=== PATIENT | male | born 1970 | race Caucasian/White ===

== ENCOUNTER 2018-10-29 17:25 | Emergency (ER) | payer OTHER ==
[~2018-10-29] VITALS: Ht 188 cm; Wt 101.2 kg
[2018-10-29] MEDS ORDERED: FAMOTIDINE 20 MG/2 ML VIAL IVP ONE (18:30)
[2018-10-29] MEDS ORDERED: IV NORMAL SALINE 1000ML BAG 1,000 ML IV ONE (18:30)
[2018-10-29] MEDS ORDERED: ONDANSETRON PF 4 MG/2 ML VIAL. IV ONE (18:30)
[2018-10-29] MEDS ORDERED: MORPHINE SULFATE 10 MG/ML VIAL. IV ONE (18:30)
[2018-10-29 18:43] LABS: BASO % 1 % (0-3); EOS # 0.4 x10^3/uL (0.0-0.7); EOS % 5 % (0-3); HEMATOCRIT 43.9 % (39.0-53.0); HEMOGLOBIN 15.6 g/dL (13.0-17.5); LYMPH # 2.3 x10^3/uL (1.0-4.8); LYMPH % 29 % (24-48); MEAN CORPUSCULAR HEMOGLOBIN 32 pg (25-35); MEAN CORPUSCULAR HGB CONC 36 g/dL (31-37); MEAN CORPUSCULAR VOLUME 89 fL (79-100); MONO # 0.7 x10^3/uL (0.0-1.1); MONO % 9 % (0-9); NEUT # 4.6 x10^3uL (1.8-7.7); NEUT % 57 % (31-73); PLATELET COUNT 245 x10^3/uL (140-400); RED BLOOD COUNT 4.94 x10^6/uL (4.30-5.70); RED CELL DISTRIBUTION WIDTH 12.8 % (11.5-14.5)
[2018-10-29 18:47] LABS: BILIRUBIN,URINE NEGATIVE (NEG); CLARITY,URINE CLEAR; COLOR,URINE YELLOW; NITRITE,URINE NEGATIVE (NEG); PROTEIN,URINE NEGATIVE (NEG-TRACE)
[2018-10-29 18:53] LABS: BACTERIA,URINE 0 /HPF (0-FEW); RBC,URINE 0 /HPF (0-2); WBC,URINE 0 /HPF (0-4)
[2018-10-29 18:54] LABS: CALCIUM 9.3 mg/dL (8.5-10.1); CREATININE 0.8 mg/dL (0.7-1.3); GFR 104.1; POTASSIUM 3.5 mmol/L (3.5-5.1)
[2018-10-29 18:54] LABS: BARBITURATES NEG (NEG); BENZODIAZEPINES NEG (NEG); CANNABINOIDS NEG (NEG); COCAINE NEG (NEG); METHADONE NEG (NEG); OPIATES NEG (NEG); PHENCYCLIDINE NEG (NEG)
[2018-10-29 18:59] LABS: AMPHETAMINE/METHAMPHETAMINE NEG (NEG)
[2018-10-29] MEDS ORDERED: IOHEXOL 300 MG/ML 100ML VIAL. IV ONE (19:00)
[2018-10-29 19:01] LABS: ALBUMIN/GLOBULIN RATIO 1.1 (1.0-1.7); MAGNESIUM 2.2 mg/dL (1.8-2.4); TOTAL BILIRUBIN 0.2 mg/dL (0.2-1.0); TOTAL PROTEIN 7.6 g/dL (6.4-8.2)
[2018-10-29] MEDS ORDERED: CONTRAST GIVEN. MC PRN ×2 (19:15)
--- NOTE | 2018-10-29 20:25 | RAD ---
Examination: CT ABD PELV W/ IV CONTRST ONLY History: abd pain x 2 days; Omni 300, 75ml Comparison/Correlation: None Findings: Axial images of the abdomen and pelvis were obtained following IV contrast. Sagittal and coronal reformatted images were provided. Moderate amount of debris within the stomach is noted. Approximately 1 cm diameter left hepatic lobe segment 2 cyst is present. Smaller lesion which probably also represents a cyst or biliary hamartoma is present involving the right hepatic lobe near the hepatic hilum. Pancreas, adrenal glands, and kidneys are unremarkable. No extraluminal gas. No enlarged abdominal or pelvic lymph nodes. No ascites or pelvic free fluid. Gallbladder fossa is unremarkable. Appendix is normal. Urinary bladder is unremarkable. Bony structures are overall unremarkable. Slightly depressed L1 superior endplate is noted but this is likely chronic or developmental. Impression: No acute inflammatory process or obstruction. Electronically signed by: Jreemie Jim MD (10/29/2018 8:20 PM) [facility]
[2018-10-29 21:17] VITALS: BP 96/64
--- NOTE | 2018-10-29 21:40 | PHYS DOC ---
Past Medical History Past Medical History: No Pertinent History Alcohol Use: Occasionally Drug Use: None Adult General Chief Complaint Chief Complaint: ABDOMINAL PAIN HPI HPI Patient is a 48 year old male with no significant medical history who presents today complaining of 8 out of 10 bilateral upper abdominal pain that began yesterday and now has spread throughout the entire abdomen. Patient describes the pain as sharp and intermittent. Patient denies anything exacerbating or making the pain better. He states he has been seen at the different facility before for similar pain, had a full workup which was negative. Patient denies any nausea vomiting, denies any diarrhea. Review of Systems Review of Systems Constitutional: Denies fever or chills [] Eyes: Denies change in visual acuity, redness, or eye pain [] HENT: Denies nasal congestion or sore throat [] Respiratory: Denies cough or shortness of breath [] Cardiovascular: No additional information not addressed in HPI [] GI: Reports generalized abdominal pain, denies nausea, vomiting, bloody stools or diarrhea [] : Denies dysuria or hematuria [] Musculoskeletal: Denies back pain or joint pain [] Integument: Denies rash or skin lesions [] Neurologic: Denies headache, focal weakness or sensory changes [] All other systems were reviewed and found to be within normal limits, except as documented in this note. Current Medications Current Medications Current Medications Medications (Trade) Dose Ordered Sig/Redd Start Time Stop Time Status Last Admin Dose Admin Famotidine (Pepcid Vial) 20 mg 1X ONCE 10/29/18 18:30 10/29/18 18:39 DC 10/29/18 18:54 20 MG Info (CONTRAST GIVEN -- Rx MONITORING) 1 each PRN DAILY PRN 10/29/18 19:15 10/31/18 19:14 Iohexol (Omnipaque 300 Mg/ml) 75 ml 1X ONCE 10/29/18 19:00 10/29/18 19:02 DC 10/29/18 19:17 75 ML Morphine Sulfate (Morphine Sulfate) 5 mg 1X ONCE 10/29/18 18:30 10/29/18 18:39 DC 10/29/18 18:58 5 MG Ondansetron HCl (Zofran) 4 mg 1X ONCE 10/29/18 18:30 10/29/18 18:39 DC 10/29/18 18:53 4 MG Sodium Chloride 1,000 ml @ 1,000 mls/hr 1X ONCE 10/29/18 18:30 10/29/18 19:29 DC 10/29/18 18:52 1,000 MLS/HR Allergies Allergies Allergies Coded Allergies Type Severity Reaction Last Updated Verified No Known Drug Allergies 10/29/18 No Physical Exam Physical Exam Constitutional: Well developed, well nourished, no acute distress, non-toxic appearance. [] HENT: Normocephalic, atraumatic, bilateral external ears normal, oropharynx moist, no oral exudates, nose normal. [] Eyes: PERRLA, EOMI, conjunctiva normal, no discharge. [] Neck: Normal range of motion, no tenderness, supple, no stridor. [] Cardiovascular:Heart rate regular rhythm, no murmur [] Lungs & Thorax: Bilateral breath sounds clear to auscultation [] Abdomen: Bowel sounds normal, soft, no tenderness, no masses, no pulsatile masses. [] Skin: Warm, dry, no erythema, no rash. [] Back: No tenderness, no CVA tenderness. [] Extremities: No tenderness, no cyanosis, no clubbing, ROM intact, no edema. [] Neurologic: Alert and oriented X 3, normal motor function, normal sensory function, no focal deficits noted. [] Psychologic: Affect normal, judgement normal, mood normal. [] Current Patient Data Vital Signs Vital Signs Date Time Temp Pulse Resp B/P (MAP) Pulse Ox O2 Delivery O2 Flow Rate FiO2 10/29/18 18:58 16 98 Room Air 10/29/18 18:21 97.9 69 117/74 (88) 97.9 Lab Values Laboratory Tests Test 10/29/18 18:15 10/29/18 18:20 Urine Collection Type Unknown Urine Color Yellow Urine Clarity Clear Urine pH 6.0 Urine Specific [place] >=1.030 Urine Protein Negative mg/dL (NEG-TRACE) Urine Glucose (UA) Negative mg/dL (NEG) Urine Ketones (Stick) Negative mg/dL (NEG) Urine Blood Negative (NEG) Urine Nitrite Negative (NEG) Urine Bilirubin Negative (NEG) Urine Urobilinogen Dipstick 1.0 mg/dL (0.2 mg/dL) Urine Leukocyte Esterase Negative (NEG) Urine RBC 0 /HPF (0-2) Urine WBC 0 /HPF (0-4) Urine Bacteria 0 /HPF (0-FEW) Urine Mucus Mod /LPF Urine Opiates Screen Neg (NEG) Urine Methadone Screen Neg (NEG) Urine Barbiturates Neg (NEG) Urine Phencyclidine Screen Neg (NEG) Urine Amphetamine/Methamphetamine Neg (NEG) Urine Benzodiazepines Screen Neg (NEG) Urine Cocaine Screen Neg (NEG) Urine Cannabinoids Screen Neg (NEG) Urine Ethyl Alcohol Neg (NEG) White Blood Count 8.0 x10^3/uL (4.0-11.0) Red Blood Count 4.94 x10^6/uL (4.30-5.70) Hemoglobin 15.6 g/dL (13.0-17.5) Hematocrit 43.9 % (39.0-53.0) Mean Corpuscular Volume 89 fL (79-100) Mean Corpuscular Hemoglobin 32 pg (25-35) Mean Corpuscular Hemoglobin Concent 36 g/dL (31-37) Red Cell Distribution Width 12.8 % (11.5-14.5) Platelet Count 245 x10^3/uL (140-400) Neutrophils (%) (Auto) 57 % (31-73) Lymphocytes (%) (Auto) 29 % (24-48) Monocytes (%) (Auto) 9 % (0-9) Eosinophils (%) (Auto) 5 % (0-3) H Basophils (%) (Auto) 1 % (0-3) Neutrophils # (Auto) 4.6 x10^3uL (1.8-7.7) Lymphocytes # (Auto) 2.3 x10^3/uL (1.0-4.8) Monocytes # (Auto) 0.7 x10^3/uL (0.0-1.1) Eosinophils # (Auto) 0.4 x10^3/uL (0.0-0.7) Basophils # (Auto) 0.0 x10^3/uL (0.0-0.2) Sodium Level 139 mmol/L (136-145) Potassium Level 3.5 mmol/L (3.5-5.1) Chloride Level 103 mmol/L (98-107) Carbon Dioxide Level 29 mmol/L (21-32) Anion Gap 7 (6-14) Blood Urea Nitrogen 14 mg/dL (8-26) Creatinine 0.8 mg/dL (0.7-1.3) Estimated GFR (Cockcroft-Gault) 104.1 BUN/Creatinine Ratio 18 (6-20) Glucose Level 118 mg/dL (70-99) H Calcium Level 9.3 mg/dL (8.5-10.1) Magnesium Level 2.2 mg/dL (1.8-2.4) Total Bilirubin 0.2 mg/dL (0.2-1.0) Aspartate Amino Transferase (AST) 20 U/L (15-37) Alanine Aminotransferase (ALT) 34 U/L (16-63) Alkaline Phosphatase 52 U/L (46-116) Troponin I Quantitative < 0.017 ng/mL (0.000-0.055) IO-Zzi-V-Type Natriuretic Peptide 22 pg/mL (0-124) Total Protein 7.6 g/dL (6.4-8.2) Albumin 4.0 g/dL (3.4-5.0) Albumin/Globulin Ratio 1.1 (1.0-1.7) Lipase 225 U/L (73-393) Ethyl Alcohol Level < 10 mg/dL (0-10) Laboratory Tests 10/29/18 18:20 Laboratory Tests 10/29/18 18:20 EKG EKG Interpreted by Dr. Vyas, sinus rhythm heart rate 63 no STEMI[] Radiology/Procedures Radiology/Procedures []PROCEDURE: CT ABD PELV W/ IV CONTRST ONLY Examination: CT ABD PELV W/ IV CONTRST ONLY History: abd pain x 2 days; Omni 300, 75ml Comparison/Correlation: None Findings: Axial images of the abdomen and pelvis were obtained following IV contrast. Sagittal and coronal reformatted images were provided. Moderate amount of debris within the stomach is noted. Approximately 1 cm diameter left hepatic lobe segment 2 cyst is present. Smaller lesion which probably also represents a cyst or biliary hamartoma is present involving the right hepatic lobe near the hepatic hilum. Pancreas, adrenal glands, and kidneys are unremarkable. No extraluminal gas. No enlarged abdominal or pelvic lymph nodes. No ascites or pelvic free fluid. Gallbladder fossa is unremarkable. Appendix is normal. Urinary bladder is unremarkable. Bony structures are overall unremarkable. Slightly depressed L1 superior endplate is noted but this is likely chronic or developmental. Impression: No acute inflammatory process or obstruction. Electronically signed by: Jeremie Beaver MD (10/29/2018 8:20 PM) [facility] DICTATED and SIGNED BY: JEREMIE BEAVER MD DATE: 10/29/182012 Course & Med Decision Making Course & Med Decision Making Pertinent Labs and Imaging studies reviewed. (See chart for details) This is a 48-year-old male patient presented to the ED today with complaints of generalized abdominal pain for 2 days. CBC, CMP, lipase, UA, are negative for any acute findings, CT of the abdomen and pelvic with IV contrast is negative for any acute findings. Patient was provided GI doctor for follow-up as an outpatient. Instructed to take kehr-jyy-feegzlb medications as needed. Dragon Disclaimer Dragon Disclaimer This electronic medical record was generated, in whole or in part, using a voice recognition dictation system. Departure Departure Impression: Primary Impression: Abdominal pain Disposition: HOME, SELF-CARE Condition: STABLE Referrals: NON,STAFF (PCP) BÁRBARA SMITH MD Follow up in one week Patient Instructions: Abdominal Pain (Nonspecific) Additional Instructions: You were evaluated in the emergency room for abdominal pain. Your work up was negative for any acute findings including CT of the abdomen with IV contrast as well as lab work. Please follow-up with the provided GI doctor in the next 7 days if symptoms continue. Take ppyw-jik-lnlnark medications as needed for pain. Problem Qualifiers Primary Impression: Abdominal pain Abdominal location: generalized Qualified Codes: R10.84 - Generalized abdominal pain KELLY STANLEY APRN Oct 29, 2018 21:40
[2018-10-30] MEDS ORDERED: IOHEXOL 300 MG/ML 100ML VIAL. ONE (02:17)
--- NOTE | 2018-10-30 06:38 | EKG ---
[facility] [address] [place] [address] Test Date: 2018-10-29 Test Time: 18:45:17 Pat Name: CHAPITO ALY Department: Room: Gender: M Marking Clerk: : 1970 Requested By: KELLY STANLEY Order Number: [id number] Reading MD: Measurements Intervals [place] Rate: 63 P: OR: QRS: 108 QRSD: 106 T: 118 QT: 410 QTc: 423 Interpretive Statements IRREGULAR RHYTHM, NO P-WAVE FOUND RIGHTWARD AXIS QRS(T) CONTOUR ABNORMALITY CONSISTENT WITH HIGH LATERAL INFARCT AGE UNDETERMINED ABNORMAL ECG RI6.01 No previous ECG available for comparison
== END 2018-10-29 21:58 | disposition home or self-care (01) ==
LOC: ER 17:25
DX: R10.11 Right upper quadrant pain (principal); R10.12 Left upper quadrant pain; R10.84 Generalized abdominal pain
CPT/HCPCS: 36415; 74177; 80053; 80307; 81001; 83690; 83735; 83880; 84484; 85025; 93005; 96374; 96375; 99284; G0480; J2270; J2405; J3490; J7030; Q9967; 99285-25

== ENCOUNTER 2020-03-03 14:37 | Emergency (ER) | payer OTHER ==
[~2020-03-03] VITALS: Ht 188 cm; Wt 100.0 kg
[2020-03-03 15:38] VITALS: BP 133/86
--- NOTE | 2020-03-03 16:09 | RAD ---
Examination: HAND LEFT 3V History: Reason: knicked hand with a hand drill / Spl. Instructions: / History: Comparison/Correlation: None Findings: 3 images of the left hand were obtained. Evaluation May BE limited C4 digit proximal phalanx with a ring noted at this level. On the lateral view, there is longitudinal calcific density parallel to the posterior aspect of the second metacarpal bone proximally. Associated soft tissue irregularity at the dorsal aspect of the mid to distal metacarpal bone suggests a lateral view. Joint spaces are mostly unremarkable. Mild early radiocarpal joint remodeling is noted. Impression: Linear density along the posterior aspect of the second metacarpal bone proximally is present. This raises question of nondisplaced cortical fracture defect. Correlated with history of injury. No radiopaque foreign body Electronically signed by: Jeremie Jim MD (03/03/2020 4:06 PM) [id number]
[2020-03-03] MEDS ORDERED: PIPERACILLIN/TAZOBACTAM 3.375 GM in IV NORMAL SALINE 50ML 50 ML IV ONE (16:30)
[2020-03-03] MEDS ORDERED: DIPH,PERTUSS(ACELL),TET VAC/PF 0.5 ML SYRINGE. VAX IM ONE (16:30)
[2020-03-03] MEDS ORDERED: NEOMY/BACITR/POLYMYXIN OINT PACKET. TP ONE (16:30)
[2020-03-03] MEDS ORDERED: CEPH500T PO (17:13)
[2020-03-03] MEDS ORDERED: HYDR-3164 PO (17:14)
--- NOTE | 2020-03-03 17:14 | PHYS DOC ---
Past Medical History Past Medical History: No Pertinent History Past Surgical History: No Surgical History Smoking Status: Former Smoker Alcohol Use: Occasionally Drug Use: None General Adult EDM: Chief Complaint: HAND PROBLEM HPI: HPI: Patient is a 49 year old male who presents to the ED today with puncture wound to the left hand. Patient is left-handed, he states he was working with a drill bit that accidentally nicked his left hand. This happened yesterday. Review of Systems: Review of Systems: Constitutional: Denies fever or chills. [] Musculoskeletal: Reports left hand injury Integument: Denies rash. [] Neurologic: Denies headache, focal weakness or sensory changes. [] Psychiatric: Denies depression or anxiety. [] Heart Score: Risk Factors: Risk Factors: DM, Current or recent (<one month) smoker, HTN, HLP, family history of CAD, obesity. Risk Scores: Score 0 - 3: 2.5% MACE over next 6 weeks - Discharge Home Score 4 - 6: 20.3% MACE over next 6 weeks - Admit for Clinical Observation Score 7 - 10: 72.7% MACE over next 6 weeks - Early Invasive Strategies Current Medications: Current Medications Medications (Trade) Dose Ordered Sig/Redd Start Time Stop Time Status Last Admin Dose Admin Diphtheria/ Tetanus/Acell Pertussis (ADACEL TDap SYRINGE) 0.5 ml ONCE ONCE 03/03/20 16:30 03/03/20 16:31 DC 03/03/20 16:43 0.5 ML Neomycin/ Polymyxin/ Bacitracin (Triple Antibiotic Ointment) 1 pkt 1X ONCE 03/03/20 16:30 03/03/20 16:31 DC 03/03/20 16:30 1 PKT Piperacillin Sod/ Tazobactam Sod 3.375 gm/Sodium Chloride 50 ml @ 100 mls/hr 1X ONCE 03/03/20 16:30 03/03/20 17:00 DC 03/03/20 16:43 100 MLS/HR Allergies: Allergies: Allergies Coded Allergies Type Severity Reaction Last Updated Verified No Known Drug Allergies 10/29/18 No Physical Exam: PE: Constitutional: Well developed, well nourished, no acute distress, non-toxic appearance. [] Skin: Warm, dry, no erythema, no rash. [] Back: No tenderness, no CVA tenderness. [] Extremities: Left hand with no obvious deformity, puncture wound approximately 0.5 x 0.5 cm noted on the left hand ventral aspect between index finger and ring finger knuckle. No obvious bleeding. Full range of motion to the left hand and fingers. Adequate radial, medial, ulnar sensation to the left fingers. +2 left radial pulse. Cap refill less than 2 seconds to left fingers. Neurologic: Alert and oriented X 3, normal motor function, normal sensory function, no focal deficits noted. [] Psychologic: Affect normal, judgement normal, mood normal. [] Current Patient Data: Vital Signs: Vital Signs Date Time Temp Pulse Resp B/P (MAP) Pulse Ox O2 Delivery O2 Flow Rate FiO2 03/03/20 15:38 97.9 63 16 133/86 (102) 98 Room Air 97.9 EKG: EKG: [] Radiology/Procedures: Radiology/Procedures: []PROCEDURE: HAND LEFT 3V Examination: HAND LEFT 3V History: Reason: knicked hand with a hand drill / Spl. Instructions: / History: Comparison/Correlation: None Findings: 3 images of the left hand were obtained. Evaluation May BE limited C4 digit proximal phalanx with a ring noted at this level. On the lateral view, there is longitudinal calcific density parallel to the posterior aspect of the second metacarpal bone proximally. Associated soft tissue irregularity at the dorsal aspect of the mid to distal metacarpal bone suggests a lateral view. Joint spaces are mostly unremarkable. Mild early radiocarpal joint remodeling is noted. Impression: Linear density along the posterior aspect of the second metacarpal bone proximally is present. This raises question of nondisplaced cortical fracture defect. Correlated with history of injury. No radiopaque foreign body Electronically signed by: Jeremie Beaver MD (03/03/2020 4:06 PM) [id number] DICTATED and SIGNED BY: JEREMIE BEAVER MD DATE: 03/03/20 1606 Course & Med Decision Making: Course & Med Decision Making Pertinent Labs and Imaging studies reviewed. (See chart for details) This is a 49-year-old male patient presenting to the ED today with left hand injury, patient accidentally nicked his left hand with a drill bit yesterday. Left hand x-rays interpreted by radiologist were noted for possible second metacarpal bone proximally undisplaced fracture. Left hand injury site was cleaned thoroughly, Neosporin applied, patient was placed in a sugar tong splint by the care technician, neurovascular exam done by me is normal. He was given Zosyn IV in the ED, discharged on cephalexin, provided orthopedic doctor for follow-up. Breanna Disclaimer: Breanna Disclaimer: This electronic medical record was generated, in whole or in part, using a voice recognition dictation system. Departure Departure Impression: Primary Impression: Fracture of metacarpal base of left hand, open Qualified Codes: S62.341B - Nondisplaced fracture of base of second metacarpal bone, left hand, initial encounter for open fracture Disposition: HOME, SELF-CARE Condition: STABLE Referrals: NOBLE WOODRUFF APRN (PCP) CHAPITO LOREDO MD call his office tomorrow and set up a follow up appointment Patient Instructions: Hand Fracture, Metacarpals Additional Instructions: You have a possible nondisplaced fracture of the left second hand knuckle. Please contact the provided orthopedic doctor and set up a follow-up appointment. Try to ice and elevate the extremity. Complete your antibiotics Scripts Hydrocodone/Apap 5-325 (NORCO 5-325 TABLET) 1 Each Tablet 1 TAB PO Q6HRS, #12 TAB Prov: KELLY STANLEY APRN 03/03/20 Cephalexin (CEPHALEXIN) 500 Mg Tablet 1 TAB PO TID, #30 TAB Prov: KELLY STANLEY APRN 03/03/20 KELLY STANLEY APRN March 03, 2020 17:14
== END 2020-03-03 17:39 | disposition home or self-care (01) ==
LOC: ER 14:37
DX: S62.34 Nondisplaced fracture of base of other metacarpal bone (principal); Z87.891 Personal history of nicotine dependence; W29.8XXA Contact with other powered hand tools and household machinery, initial encounter; Y93.89 Activity, other specified; Y92.79 Other farm location as the place of occurrence of the external cause; Y99.0 Civilian activity done for income or pay
CPT/HCPCS: 29125; 73130; 90471; 90715; 96365; 99284; J2543

== ENCOUNTER 2021-02-12 09:31 | Emergency (ER) | payer OTHER ==
[~2021-02-12] VITALS: Ht 185.4 cm; Wt 106.8 kg
[~2021-02-12 09:31] MED LIST: CEPH500T PO; HYDR-3164 PO
[2021-02-12] MEDS ORDERED: LIDOCAINE 1%/EPI 1:100,000 20 ML VIAL. INJ ONE (10:30)
--- NOTE | 2021-02-12 10:45 | PHYS DOC ---
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 Patient is left-handed (KELLY STANLEY FAMILY EDUCATOR) Review of Systems: Review of Systems: Constitutional: Denies fever or chills. [] Musculoskeletal: Denies back pain or joint pain. [] Integument: Right forearm laceration Neurologic: Denies headache, focal weakness or sensory changes. [] Psychiatric: Denies depression or anxiety. [] (KELLY STANLEY TAM) Heart Score: C/O Chest Pain: N/A Risk Factors: Risk Factors: DM, Current or recent (<one month) smoker, HTN, HLP, family history of CAD, obesity. Risk Scores: Score 0 - 3: 2.5% MACE over next 6 weeks - Discharge Home Score 4 - 6: 20.3% MACE over next 6 weeks - Admit for Clinical Observation Score 7 - 10: 72.7% MACE over next 6 weeks - Early Invasive Strategies (KELLY STANLEY FAMILY EDUCATOR) Current Medications: Current Medications Medications (Trade) Dose Ordered Sig/Redd Start Time Stop Time Status Last Admin Dose Admin Lidocaine/ Epinephrine (LIDOCAINE 1%-EPI 1:100,000 Multi-Dose) 20 ml 1X ONCE 02/12/21 10:30 02/12/21 10:31 DC 02/12/21 10:26 20 ML (KELLY STANLEY FAMILY EDUCATOR) Allergies: Allergies: Allergies Coded Allergies Type Severity Reaction Last Updated Verified No Known Drug Allergies 10/29/18 No (KELLY STANLEY TAM) Physical Exam: PE: Constitutional: Well developed, well nourished, no acute distress, non-toxic appearance. [] Skin: Right proximal forearm ventral aspect with a laceration approximately 8 cm x 2.5 cm. There is no obvious tendon involvement. Patient able to flex and extend the right elbow. Full range of motion to the right fingers. Adequate radial, medial, ulnar sensation to the right fingers. +2 right radial pulse. Cap refill less than 2 seconds of right fingers Back: No tenderness, no CVA tenderness. [] Extremities: No tenderness, no cyanosis, no clubbing, ROM intact, no edema. [] Neurologic: Alert and oriented X 3, normal motor function, normal sensory function, no focal deficits noted. [] Psychologic: Affect normal, judgement normal, mood normal. [] (KELLY STANLEY APRN) Current Patient Data: Vital Signs: Vital Signs Date Time Temp Pulse Resp B/P (MAP) Pulse Ox O2 Delivery O2 Flow Rate FiO2 02/12/21 09:45 98.6 72 16 114/79 (91) 95 Room Air 98.6 (KELLY STANLEY APRN) EKG: EKG: [] (KELLY STANLEY APRN) Radiology/Procedures: Radiology/Procedures: Laceration/Wound Repair Wound Location: Right forearm Wound's Depth, Shape: Horizontal Wound Length (cm): 8 x 2.5 Wound Explored: clean Irrigated w/ Saline (ccs): 500 Betadine Prep?: Y Anesthesia: 1% of lidocaine with epinephrine Volume Anesthetic (ccs): 10 cc Wound Repaired With: Ethilon Suture Size/Type: 3.0 and 4.0 Number of Sutures: 13 Progress : Wound was covered with nonstick dressing (KELLY STANLEY APRN) Course & Med Decision Making: Course & Med Decision Making Pertinent Labs and Imaging studies reviewed. (See chart for details) This is a 50-year-old male patient with a right forearm laceration. Tetanus is up-to-date. Laceration was repaired by me as noted in procedures. Wound care instructions and return precautions provided (KELLY STANLEY APRN) Dragon Disclaimer: Dragon Disclaimer: This electronic medical record was generated, in whole or in part, using a voice recognition dictation system. (KELLY STANLEY APRN) Departure Departure Impression: Primary Impression: Laceration of right forearm Qualified Codes: S51.811A - Laceration without foreign body of right forearm, initial encounter Disposition: HOME / SELF CARE / HOMELESS Condition: STABLE Referrals: NOBLE WOODRUFF APRN (PCP) Follow-up with your primary care doctor or the emergency room in 7 to 10 days for stitches to be removed Patient Instructions: Laceration Care, Adult Additional Instructions: You have right forearm laceration that was closed with stitches. You can shower and wash the area after 24 hours. Remove the dressing in the next 24 hours. Leave it open to air if is not bleeding or draining. Please apply Neosporin to the area twice a day. Monitor the area for any signs of infection including but not limited to increased redness, warmth, yellow drainage from the area and return to the ED if they occur. Follow-up with the ED or your own doctor in 7 to 10 days for stitches to be removed Attending Signature Attending Signature I have participated in the care of this patient and I have reviewed and agree with all pertinent clinical information above including history, exam, and recommendations. (IVY SENIOR DO) KELLY STANLEY APRN February 12, 2021 10:45 IVY SENIOR DO February 12, 2021 17:39
[2021-02-12 12:00] VITALS: BP 108/72
== END 2021-02-12 12:08 | disposition home or self-care (01) ==
LOC: ER 09:31
DX: S51.811A Laceration without foreign body of right forearm, initial encounter (principal); W27.8XXA Contact with other nonpowered hand tool, initial encounter; Y93.89 Activity, other specified; Y92.89 Other specified places as the place of occurrence of the external cause; Y99.8 Other external cause status
CPT/HCPCS: 12004; 99285; J3490

== ENCOUNTER 2021-05-09 14:04 | Emergency (ER) | payer OTHER ==
[~2021-05-09] VITALS: Ht 188 cm; Wt 106.8 kg
--- NOTE | 2021-05-09 15:15 | RAD ---
EXAM: Chest, single view. HISTORY: Short of breath. COMPARISON: None. FINDINGS: A frontal view of the chest is obtained. There is no infiltrate, pleural effusion or pneumo thorax. The heart is normal in size. IMPRESSION: No acute pulmonary finding. Electronically signed by: Isa Garcia MD (05/09/2021 3:13 PM) [id number]
[2021-05-09 15:27] LABS: BASO % 1 % (0-3); EOS # 0.1 x10^3/uL (0.0-0.7); EOS % 2 % (0-3); HEMATOCRIT 43.7 % (39.0-53.0); HEMOGLOBIN 15.2 g/dL (13.0-17.5); LYMPH # 1.3 x10^3/uL (1.0-4.8); LYMPH % 25 % (24-48); MEAN CORPUSCULAR HEMOGLOBIN 31 pg (25-35); MEAN CORPUSCULAR HGB CONC 35 g/dL (31-37); MEAN CORPUSCULAR VOLUME 89 fL (79-100); MONO # 0.4 x10^3/uL (0.0-1.1); MONO % 8 % (0-9); NEUT # 3.4 x10^3/uL (1.8-7.7); NEUT % 64 % (31-73); PLATELET COUNT 286 x10^3/uL (140-400); RED BLOOD COUNT 4.91 x10^6/uL (4.30-5.70); RED CELL DISTRIBUTION WIDTH 13.2 % (11.5-14.5); WHITE BLOOD COUNT 5.3 x10^3/uL (4.0-11.0)
[2021-05-09 15:42] LABS: CALCIUM 9.1 mg/dL (8.5-10.1); CREATININE 0.7 mg/dL (0.7-1.3); GFR 120.4; POTASSIUM 3.9 mmol/L (3.5-5.1)
[2021-05-09 15:47] LABS: ALBUMIN 3.4 g/dL (3.4-5.0); ALBUMIN/GLOBULIN RATIO 0.9 (1.0-1.7); TOTAL BILIRUBIN 0.2 mg/dL (0.2-1.0); TOTAL PROTEIN 7.3 g/dL (6.4-8.2)
[2021-05-09] MEDS ORDERED: IOHEXOL 350 MG/ML 100 ML VIAL. IV ONE (17:00)
[2021-05-09] MEDS ORDERED: CONTRAST GIVEN. MC PRN (17:00)
--- NOTE | 2021-05-09 17:28 | RAD ---
EXAM: CT angiography of the chest with intravenous contrast. HISTORY: Shortness of breath. Elevated d-dimer. TECHNIQUE: Computed tomographic images of the chest were obtained following the administration of int ravenous contrast according to angiography protocol. Multiplanar reformatting was performed and three dimensional maximum intensity projection images were obtained. *One or more of the following individualized dose reduction techniques were utilized for this examina tion: 1. Automated exposure control. 2. Adjustment of the mA and/or kV according to patient size. 3. Use of iterative reconstruction technique. COMPARISON: None. FINDINGS: Evaluation for distal pulmonary emboli is limited due to suboptimal contrast opacification of the distal pulmonary arteries. There is no convincing central pulmonary embolism. The heart is nor mal in size. The aorta is normal in caliber. There are prominent bilateral hilar lymph nodes. There a re few calcified hilar granulomas. There is no pneumothorax or pleural effusion. There is a 4 mm nodu le within the right lung apex. There is a 7 mm nodule along the right minor fissure, likely a fissura l lymph node. There are 3 mm and 2 mm nonspecific groundglass nodules within the right lower lobe. Th ere are 2 mm and 3 mm nodules along the left pleural fissure, likely due to fissural lymph nodes. The re are 4 mm and 3 mm nodule surrounding groundglass within the peripheral left lower lobe. There is a djacent posterior dependent and basilar atelectasis. There are few scattered calcified granulomas. Th ere is a 1.5 cm hypodense lesion within the left hepatic lobe and there are 5 mm and 10 mm hypodense lesions within the right hepatic lobe. These are too small to characterize. There are hepatic and spl enic granulomas. There is no acute or suspicious osseous finding. IMPRESSION: 1. No convincing evidence of pulmonary embolism. Evaluation for distal pulmonary emboli is limited du e to suboptimal contrast opacification. 2. Small bilateral pulmonary nodules and nodular opacities measuring up to 7 mm. Follow-up can be per formed in 6-12 months to confirm benignity. 3. Prominent hilar lymph nodes, nonspecific and possibly reactive in etiology. Attention the time of follow-up is recommended. 4. Small hypodense lesions within the liver. These are too small to characterize. In the absence of k nown malignancy, these are likely cysts or hemangiomas. Electronically signed by: Isa Garcia MD (05/09/2021 5:25 PM) [id number]
[2021-05-09] MEDS ORDERED: VENTOLIN HFA18 GM INH (17:36)
[2021-05-09] MEDS ORDERED: METH4TAB2 PO (17:36)
--- NOTE | 2021-05-09 17:36 | ED.ADGEN ---
Past Medical History Past Medical History: No Pertinent History Past Surgical History: No Surgical History Smoking Status: Never Smoker Alcohol Use: Occasionally Drug Use: None General Adult EDM: Chief Complaint: SHORTNESS OF BREATH HPI: HPI: Patient is a 50 year old [f__sex] who presents with [] Review of Systems: Review of Systems: Constitutional: Denies fever or chills. [] Eyes: Denies change in visual acuity. [] HENT: Denies nasal congestion or sore throat. [] Respiratory: Denies cough or shortness of breath. [] Cardiovascular: Denies chest pain or edema. [] GI: Denies abdominal pain, nausea, vomiting, bloody stools or diarrhea. [] : Denies dysuria. [] Musculoskeletal: Denies back pain or joint pain. [] Integument: Denies rash. [] Neurologic: Denies headache, focal weakness or sensory changes. [] Endocrine: Denies polyuria or polydipsia. [] Lymphatic: Denies swollen glands. [] Psychiatric: Denies depression or anxiety. [] Current Medications: Current Medications Medications (Trade) Dose Ordered Sig/Redd Start Time Stop Time Status Last Admin Dose Admin Info (CONTRAST GIVEN -- Rx MONITORING) 1 each PRN DAILY PRN 05/09/21 17:00 05/11/21 16:59 Iohexol (Omnipaque 350 Mg/ml) 100 ml 1X ONCE 05/09/21 17:00 05/09/21 17:01 DC Allergies: Allergies: Allergies Coded Allergies Type Severity Reaction Last Updated Verified No Known Drug Allergies 10/29/18 No Physical Exam: PE: Constitutional: Well developed, well nourished, no acute distress, non-toxic ap pearance. [] HENT: Normocephalic, atraumatic, bilateral external ears normal, oropharynx moist, no oral exudates, nose normal. [] Eyes: PERRLA, EOMI, conjunctiva normal, no discharge. [] Neck: Normal range of motion, no tenderness, supple, no stridor. [] Cardiovascular:Heart rate regular rhythm, no murmur [] Lungs & Thorax: Bilateral breath sounds clear to auscultation [] Abdomen: Bowel sounds normal, soft, no tenderness, no masses, no pulsatile masses. [] Skin: Warm, dry, no erythema, no rash. [] Back: No tenderness, no CVA tenderness. [] Extremities: No tenderness, no cyanosis, no clubbing, ROM intact, no edema. [] Neurologic: Alert and oriented X 3, normal motor function, normal sensory function, no focal deficits noted. [] Psychologic: Affect normal, judgement normal, mood normal. [] Current Patient Data: Labs: Laboratory Tests Test 05/09/21 15:15 05/09/21 15:50 White Blood Count 5.3 x10^3/uL (4.0-11.0) Red Blood Count 4.91 x10^6/uL (4.30-5.70) Hemoglobin 15.2 g/dL (13.0-17.5) Hematocrit 43.7 % (39.0-53.0) Mean Corpuscular Volume 89 fL (79-100) Mean Corpuscular Hemoglobin 31 pg (25-35) Mean Corpuscular Hemoglobin Concent 35 g/dL (31-37) Red Cell Distribution Width 13.2 % (11.5-14.5) Platelet Count 286 x10^3/uL (140-400) Neutrophils (%) (Auto) 64 % (31-73) Lymphocytes (%) (Auto) 25 % (24-48) Monocytes (%) (Auto) 8 % (0-9) Eosinophils (%) (Auto) 2 % (0-3) Basophils (%) (Auto) 1 % (0-3) Neutrophils # (Auto) 3.4 x10^3/uL (1.8-7.7) Lymphocytes # (Auto) 1.3 x10^3/uL (1.0-4.8) Monocytes # (Auto) 0.4 x10^3/uL (0.0-1.1) Eosinophils # (Auto) 0.1 x10^3/uL (0.0-0.7) Basophils # (Auto) 0.0 x10^3/uL (0.0-0.2) Sodium Level 142 mmol/L (136-145) Potassium Level 3.9 mmol/L (3.5-5.1) Chloride Level 107 mmol/L (98-107) Carbon Dioxide Level 26 mmol/L (21-32) Anion Gap 9 (6-14) Blood Urea Nitrogen 11 mg/dL (8-26) Creatinine 0.7 mg/dL (0.7-1.3) Estimated GFR (Cockcroft-Gault) 120.4 BUN/Creatinine Ratio 16 (6-20) Glucose Level 116 mg/dL (70-99) H Calcium Level 9.1 mg/dL (8.5-10.1) Total Bilirubin 0.2 mg/dL (0.2-1.0) Aspartate Amino Transferase (AST) 31 U/L (15-37) Alanine Aminotransferase (ALT) 36 U/L (16-63) Alkaline Phosphatase 76 U/L (46-116) Troponin I Quantitative < 0.017 ng/mL (0.000-0.055) QD-Hwj-C-Type Natriuretic Peptide 85 pg/mL (0-124) Total Protein 7.3 g/dL (6.4-8.2) Albumin 3.4 g/dL (3.4-5.0) Albumin/Globulin Ratio 0.9 (1.0-1.7) L D-Dimer (Karen) 0.73 ug/mlFEU (0.00-0.50) H Laboratory Tests 05/09/21 15:15 Laboratory Tests 05/09/21 15:15 Vital Signs: Vital Signs Date Time Temp Pulse Resp B/P (MAP) Pulse Ox O2 Delivery O2 Flow Rate FiO2 05/09/21 14:30 98.2 68 20 137/92 (84) 98 Room Air 98.2 EKG: EKG: [] Heart Score: Risk Factors: Risk Factors: DM, Current or recent (<one month) smoker, HTN, HLP, family history of CAD, obesity. Risk Scores: Score 0 - 3: 2.5% MACE over next 6 weeks - Discharge Home Score 4 - 6: 20.3% MACE over next 6 weeks - Admit for Clinical Observation Score 7 - 10: 72.7% MACE over next 6 weeks - Early Invasive Strategies Radiology/Procedures: Radiology/Procedures: [] Course & Med Decision Making: Course & Med Decision Making Pertinent Labs and Imaging studies reviewed. (See chart for details) [] Dragon Disclaimer: Dragon Disclaimer: This electronic medical record was generated, in whole or in part, using a voice recognition dictation system. Departure Departure Impression: Primary Impression: Post-COVID syndrome Disposition: HOME / SELF CARE / HOMELESS Condition: STABLE Referrals: NOBLE WOODRUFF APRN (PCP) Patient Instructions: Shortness of Breath Scripts Albuterol Sulfate (VENTOLIN HFA INHALER) 18 Gm Hfa.aer.ad 2 PUFF INH QID for FOR ASTHMA, #1 INHALER 0 Refills Prov: AL ALVAREZ MD 05/09/21 Methylprednisolone (MEDROL) 4 Mg Tab.ds.pk 1 PKG PO UD for inflammation, #1 PKG Prov: AL ALVAREZ MD 05/09/21 AL ALVAREZ MD May 09, 2021 17:36
[2021-05-09 18:01] VITALS: BP 109/74
== END 2021-05-09 18:02 | disposition home or self-care (01) ==
LOC: ER 14:04
DX: U07.1 COVID-19 (principal)
CPT/HCPCS: 36415; 71045; 71275; 80053; 83880; 84484; 85025; 85379; 99285; Q9967

== ENCOUNTER → 2021-06-14 | Outpatient (CLI) | payer OTHER ==
[~2021-06-14] MED LIST changes: +METH4TAB2 PO; +VENTOLIN HFA18 GM INH
--- NOTE | 2021-06-14 15:33 | KCIC ---
AP and Lateral Views of the Chest 06/14/2021 1:15 PM Indication: Reason: SHORTNESS OF BREATH/CHEST DISCOMFORT / Comparison: CT angiography of the chest May 09, 2021 Findings: There is no focal consolidation or infiltrate identified. The cardiomediastinal silhouette is within normal limits. There is no evidence of pneumothorax or pleural effusion. No acute osseous a bnormalities are identified. Impression: No evidence of acute cardiopulmonary process. Electronically signed by: Raffi Castro MD (06/14/2021 3:30 PM) [id number]
== END ==
LOC: KCIC 13:11
PROVIDERS: ATTEND Family Medicine
DX: R06.02 Shortness of breath (principal); R07.89 Other chest pain
CPT/HCPCS: 71046

== ENCOUNTER → 2021-07-05 | Outpatient (CLI) | payer OTHER ==
[~2021-07-05] MED LIST changes: +IOHEXOL 350 MG/ML 100 ML VIAL. IV ONE
--- NOTE | 2021-07-05 09:01 | RAD ---
CTA CHEST INDICATION: DYSPNEA. Chest radiograph 07/05/2021. CTA 05/09/2021 Comparison: None. TECHNIQUE: Following the uneventful administration of intravenous contrast, 100 cc Omnipaque 350, axi al CT sections were obtained through the lungs and upper abdomen. Multiplanar reconstructions and MIP images were obtained. RS compliance statement: One or more of the following individualized dose reduction techniques were utilized for this examinat ion: 1. Automated exposure control 2. Adjustment of the mA and/or kV according to patient size 3. Use of iterative reconstruction technique FINDINGS: Pulmonary arteries: No evidence of pulmonary thromboembolic disease. Lungs and Airways: No pulmonary mass or consolidation. There are a couple of tiny pulmonary nodules w hich are stable. Calcified pulmonary granulomas. No abnormality of the central airways. Pleura: The pleural spaces are normal. Heart and Mediastinum: The visualized thyroid is normal in size and attenuation. No axillary or supra clavicular lymphadenopathy. No mediastinal, hilar or retrocrural lymphadenopathy. Calcified right hil ar lymph nodes consistent with remote granulomatous disease. The heart and pericardium are within nor mal limits. The great vessels of the thorax are normal. Abdomen: Limited images through the upper abdomen show no abnormality of the visualized organs. Bones and Soft Tissues: The visualized bones and chest wall soft tissues are within normal limits. IMPRESSION: 1. No evidence of pulmonary thromboembolic disease. 2. No pulmonary mass or consolidation. Electronically signed by: Soto Carlson MD (07/05/2021 8:58 AM) [id number]
--- NOTE | 2021-07-06 11:22 | CARD ---
MR#: [id number] Date of Study: 07/05/2021 Ordering Physician: FIDEL HAYNES, Referring Physician: FIDEL HAYNES, Tech: Razia Montero [facility] APPROVED REPORT EXAM: Two-dimensional and M-mode echocardiogram with Doppler and color Doppler. Other Information Quality : AverageHR: 50bpm Rhythm : NSR INDICATION Chest Pain RISK FACTORS Hypertension 2D DIMENSIONS RVDd4.8 (2.9-3.5cm)Left Atrium(2D)4.6 (1.6-4.0cm) IVSd0.9 (0.7-1.1cm)Aortic Root(2D)4.1 (2.0-3.7cm) LVDd5.6 (3.9-5.9cm)LVOT Diameter2.5 (1.8-2.4cm) PWd1.0 (0.7-1.1cm)LVDs3.5 (2.5-4.0cm) FS (%) 36.5 %SV98.8 ml Aortic Valve AoV Peak Anibal.140.5cm/sAoV VTI32.5cm AO Peak GR.7.9mmHgLVOT Peak Anibal.125.6cm/s AO Mean GR.4mmHgAVA (VMAX)4.22cm2 Mitral Valve MV E Yzknwbnd86.7cm/sMV DECEL BAOB856ow MV A Edzeyasd86.5cm/sE/A Ratio1.3 Pulmonary Valve PV Peak Zunxjmnn29.0cm/s Tricuspid Valve TR P. Hrinugdw992ri/sTR Peak Gr.25mmHg LEFT VENTRICLE The left ventricle is normal size. There is normal left ventricular wall thickness. The left ventricu lar systolic function is normal. LV ejection fraction is 55 to 60%. There is normal LV segmental wall motion. The left ventricular diastolic function and filling is normal for age. RIGHT VENTRICLE The right ventricle is borderline dilated. There is normal right ventricular wall thickness. The righ t ventricular systolic function is normal. ATRIA The left atrium size is normal. The right atrium is mildly dilated. The interatrial septum is intact with no evidence for an atrial septal defect or patent foramen ovale as noted on 2-D or Doppler imagi ng. Negative bubble study. AORTIC VALVE The aortic valve is normal in structure and function. Doppler and Color Flow revealed trace aortic re gurgitation. There is no significant aortic valvular stenosis. MITRAL VALVE The mitral valve is normal in structure and function. There is no evidence of mitral valve prolapse. There is no mitral valve stenosis. Doppler and Color Flow revealed no mitral valve regurgitation note d. TRICUSPID VALVE The tricuspid valve is normal in structure and function. Doppler and Color Flow revealed trace tricus pid regurgitation. Estimated PAP 20 mmHg. There is no tricuspid valve stenosis. PULMONIC VALVE The pulmonary valve is normal in structure and function. Doppler and Color Flow revealed trace pulmon ic valvular regurgitation. GREAT VESSELS The aortic root is mildly enlarged. The ascending aorta is mildly dilated. The IVC is normal in size and collapses >50% with inspiration. PERICARDIAL EFFUSION There is no evidence of significant pericardial effusion. Critical Notification Critical Value: No <Conclusion> The left ventricle is normal size. The left ventricular systolic function is normal. LV ejection fraction is 55 to 60%. The interatrial septum is intact with no evidence for an atrial septal defect or patent foramen ovale as noted on 2-D or Doppler imaging. Negative bubble study. Doppler and Color Flow revealed trace aortic regurgitation. There is no significant aortic valvular stenosis. Doppler and Color Flow revealed no mitral valve regurgitation noted. Doppler and Color Flow revealed trace tricuspid regurgitation. Estimated PAP 20 mmHg. The aortic root is mildly enlarged. Signed by : Steve Rodriguez MD Electronically Approved : 07/06/2021 11:22:08
== END ==
LOC: CT 08:28
PROVIDERS: ATTEND Internal Medicine Cardiovascular Disease
DX: R91.8 Other nonspecific abnormal finding of lung field (principal); J84.10 Pulmonary fibrosis, unspecified
CPT/HCPCS: 71275; 93306; Q9967

== ENCOUNTER → 2021-08-11 | Outpatient (CLI) | payer OTHER ==
[~2021-08-11] MED LIST changes: +IOHEXOL 240 MG/ML 50ML VIAL. PO ONE; +IOHEXOL 300 MG/ML 100ML VIAL. IV ONE; -IOHEXOL 350 MG/ML 100 ML VIAL. IV ONE
--- NOTE | 2021-08-12 07:24 | KCIC ---
EXAM: CT Abdomen and Pelvis with IV contrast CLINICAL HISTORY: Reason: Abdominal pain / Spl. Instructions: 100mL Omni 300 / History: Upper abdomin al pain that radiates to the Rt side.. COMPARISON: 10/29/2018 TECHNIQUE: Helical CT of the abdomen and pelvis was performed following the administration of intrave nous contrast. Oral contrast was administered. Axial, coronal and sagittal reformatted images were ge [employer]. PQRS compliance statement - One or more of the following individualized dose reduction techniques wer e utilized for this study: 1. Automated exposure control 2. Adjustment of the mA and/or kV according to patient size 3. Use of iterative reconstruction technique FINDINGS: Lower Chest: Visualized lung bases are clear. Abdomen and Pelvis: There is normal in size. Similar approximately 1 cm left hepatic lobe segment 2 cyst. Smaller hypoatt enuating lesion which may represent a cyst involving the right hepatic lobe near the hepatic hilum. N o new suspicious hepatic lesions. There is decreased attenuation of the liver suggestive of mild hepa tic steatosis. Gallbladder is decompressed and unremarkable. No intra or extrahepatic biliary ductal dilation. The granulomas within the otherwise unremarkable spleen. The adrenals, pancreas, and kidney s are unremarkable. No hydroureteronephrosis. Mild distal esophageal wall thickening may relate to reflux dysphagia process. Stomach is normal in a ppearance. Nonobstructive appearance of the small and large bowel. No focal wall thickening. No acute inflammatory changes. There is a mild amount of stool in the cecum/ascending colon. Appendix is norm al. Use scattered sigmoid diverticuli without evidence of diverticulitis. No free intra-abdominal air or free fluid. No pathologically enlarged abdominal or pelvic lymph nodes. Vasculature is normal in course and caliber. Urinary bladder markable. The prostate gland is mildly enlarged with no focal abnormality. Anterior abdominal wall is unremarkable. Small fat-containing bilateral inguinal hernias. Bones: No acute or suspicious osseous abnormalities. IMPRESSION: 1. No acute suspicious abnormalities in the abdomen or pelvis. 2. Chronic/incidental findings appear unchanged from prior. Electronically signed by: Socrates Snowden DO (08/12/2021 7:21 AM) [facility]
== END ==
LOC: KCIC CT 14:28
PROVIDERS: ATTEND Family Medicine
DX: N40.0 Benign prostatic hyperplasia without lower urinary tract symptoms (principal); K76.89 Other specified diseases of liver; D73.89 Other diseases of spleen; K22.2 Esophageal obstruction; K40.90 Unilateral inguinal hernia, without obstruction or gangrene, not specified as recurrent; K57.30 Diverticulosis of large intestine without perforation or abscess without bleeding
CPT/HCPCS: 74177; Q9966; Q9967